=== PATIENT | female | born 1955 | race African-American/Black ===

== ENCOUNTER → 2017-01-03 | Outpatient (CLI) | payer MEDICARE ==
[~2017-01-03] MED LIST: ALPR2TAB2 PO; AMLO5TAB2 PO; ATOR20TA9 PO; CLIN150C14 PO; ESCI20TA10 PO; ESTR0.3T PO; HYDR200T PO; LEVO25TA4 PO; MEVACOR PO; NAPROXEN PO; PRAM0.12 PO; PROP10TA PO; SERT100T5 PO; TRAM50TA2 PO
[2017-01-03 11:48] LABS: HEMATOCRIT 44.2 % (34.6-47.8); HEMOGLOBIN 14.8 g/dL (11.7-16.4)
[2017-01-03 11:58] LABS: BLOOD UREA NITROGEN 8 mg/dL (7-18)
== END | disposition home or self-care (01) ==
LOC: STAR 10:11
PROVIDERS: ATTEND Neurological Surgery
DX: Z01.818 Encounter for other preprocedural examination (principal); M51.36 Other intervertebral disc degeneration, lumbar region; R79.1 Abnormal coagulation profile
CPT/HCPCS: 36415; 71020; 80048; 81001; 85025; 85610; 85730; 87086; 93005

== ENCOUNTER 2018-09-16 07:03 | Outpatient (CLI) | payer MEDICARE | END 2018-09-16 23:59 | disposition home or self-care (01) | LOC: CFH 07:03 | PROVIDERS: ATTEND Family Medicine | DX: K43.9 Ventral hernia without obstruction or gangrene (principal); K57.30 Diverticulosis of large intestine without perforation or abscess without bleeding; K59.00 Constipation, unspecified; J98.11 Atelectasis; K76.0 Fatty (change of) liver, not elsewhere classified; M47.895 Other spondylosis, thoracolumbar region; I70.0 Atherosclerosis of aorta; Z90.710 Acquired absence of both cervix and uterus | CPT/HCPCS: 74177; 82565; Q9967 ==

== ENCOUNTER → 2019-01-08 | Outpatient (CLI) | payer MEDICARE ==
[~2019-01-08] MED LIST changes: +AMLO-150 PO; -AMLO5TAB2 PO; +ATOR20TA37 PO; -ATOR20TA9 PO; +ATOR40TA78 PO; +HYDR-36 PO; -HYDR200T PO; +HYDR200T72 PO; +IBUP-1223 PO; +METH750T87 PO; -PROP10TA PO; +PROP10TA16 PO; +SERT100T32 PO; -SERT100T5 PO
== END | disposition home or self-care (01) ==
LOC: STAR 08:58
PROVIDERS: ATTEND Orthopaedic Surgery
DX: Z01.810 Encounter for preprocedural cardiovascular examination (principal); M75.41 Impingement syndrome of right shoulder; M75.121 Complete rotator cuff tear or rupture of right shoulder, not specified as traumatic; Z88.1 Allergy status to other antibiotic agents; Z88.9 Allergy status to unspecified drugs, medicaments and biological substances; Z88.8 Allergy status to other drugs, medicaments and biological substances
CPT/HCPCS: 93005

== ENCOUNTER 2019-01-13 10:37 | Day surgery (SDC) | payer MEDICARE ==
[~2019-01-13] VITALS: Ht 162.6 cm; Wt 71.7 kg
[2019-01-13] MEDS ORDERED: LACTATED RINGERS 1,000 ML IV SCH (10:49)
[2019-01-13 10:52] VITALS: BP 104/69
[2019-01-13] MEDS ORDERED: LIDOCAINE-MPF 1%, 2ML INFIL ONE (11:00)
[2019-01-13] MEDS ORDERED: SCOPOLAMINE PATCH, 1.5MG PATCH.TD72 TD ONE (11:00)
[2019-01-13] MEDS ORDERED: ACETAMINOPHEN 500 MG TABLET PO ONE (11:00)
[2019-01-13] MEDS ORDERED: GABAPENTIN 300 MG CAPSULE PO ONE (11:00)
[2019-01-13] MEDS ORDERED: FENTANYL PF 250 MCG/5ML ONE (11:06)
[2019-01-13] MEDS ORDERED: MIDAZOLAM 1 MG/ML, 2ML ONE (11:06)
[2019-01-13] MEDS ORDERED: LIDOCAINE/PF 1%-EPI 1:200K, 30 ML ONE (11:33)
[2019-01-13] MEDS ORDERED: SUCCINYLCHOLINE 20 MG/ML, 10ML ONE (11:45)
[2019-01-13] MEDS ORDERED: CEFAZOLIN 1,000 MG ONE (11:45)
[2019-01-13] MEDS ORDERED: DEXAMETHASONE 4 MG/ML, 1ML ONE (11:45)
[2019-01-13] MEDS ORDERED: ROCURONIUM 10 MG/ML,10ML ONE (11:45)
[2019-01-13] MEDS ORDERED: PROPOFOL 10 MG/ML, 20ML ONE (11:45)
[2019-01-13] MEDS ORDERED: ONDANSETRON 2MG/ML, 2ML ONE (11:45)
[2019-01-13] MEDS ORDERED: OXYcodone 5 MG/5 ML ORAL.SOL UDC PO PRN ×2 (12:30→13:30)
[2019-01-13] MEDS ORDERED: LABETALOL 5MG/ML, 20ML IV PRN (12:30)
[2019-01-13] MEDS ORDERED: ALBUTEROL SULFATE 2.5 MG/3 ML NPPB PRN (12:30)
[2019-01-13] MEDS ORDERED: FENTANYL PF 100 MCG/2ML IV PRN (12:30)
[2019-01-13] MEDS ORDERED: MEPERIDINE/PF 25MG/0.5ML IVPush PRN (12:30)
[2019-01-13] MEDS ORDERED: METOCLOPRAMIDE 5 MG/ML, 2ML IV PRN (12:30)
[2019-01-13] MEDS ORDERED: hydrALAzine 20 MG/ML, 1ML IV PRN (12:30)
[2019-01-13] MEDS ORDERED: ONDANSETRON 2MG/ML, 2ML IVPush PRN (12:30)
[2019-01-13] MEDS ORDERED: KETOROLAC 30 MG/1 ML IV PRN (12:30)
[2019-01-13] MEDS ORDERED: PROMETHAZINE 25 MG/ML, 1ML IV PRN (12:30)
[2019-01-13] MEDS ORDERED: HYDROmorphone 1 MG/ML, 1ML INJ IV PRN ×2 (12:30→13:30)
[2019-01-13] MEDS ORDERED: KETOROLAC 30 MG/1 ML ONE (13:33)
== END 2019-01-13 15:55 | disposition home or self-care (01) ==
LOC: OUT 10:37
PROVIDERS: ATTEND Orthopaedic Surgery
DX: S46.011A Strain of muscle(s) and tendon(s) of the rotator cuff of right shoulder, initial encounter (principal); S43.431A Superior glenoid labrum lesion of right shoulder, initial encounter; M75.41 Impingement syndrome of right shoulder; M75.51 Bursitis of right shoulder; M65.811 Other synovitis and tenosynovitis, right shoulder; M06.9 Rheumatoid arthritis, unspecified; M32.9 Systemic lupus erythematosus, unspecified; I10 Essential (primary) hypertension; F17.200 Nicotine dependence, unspecified, uncomplicated; Z79.1 Long term (current) use of non-steroidal anti-inflammatories (NSAID); Z79.891 Long term (current) use of opiate analgesic; Z79.890 Hormone replacement therapy; Z79.899 Other long term (current) drug therapy; Z88.2 Allergy status to sulfonamides; Z88.5 Allergy status to narcotic agent; Z88.0 Allergy status to penicillin; Z88.1 Allergy status to other antibiotic agents; Z88.8 Allergy status to other drugs, medicaments and biological substances; Z90.710 Acquired absence of both cervix and uterus; Z90.49 Acquired absence of other specified parts of digestive tract; Z98.51 Tubal ligation status; Z98.890 Other specified postprocedural states; Z82.3 Family history of stroke; Z82.49 Family history of ischemic heart disease and other diseases of the circulatory system
CPT/HCPCS: 29823; 29826; 29827; 64415; C1713; J0330; J0690; J1100; J1885; J2250; J2405; J2704; J3010; J3490; J7120

== ENCOUNTER 2019-09-24 13:48 | Emergency (ER) | payer MEDICARE ==
[~2019-09-24] VITALS: Ht 162.6 cm; Wt 70.0 kg
[~2019-09-24 13:48] MED LIST changes: +HYDR-3246 PO; -HYDR-36 PO
--- NOTE | 2019-09-24 14:28 | NUR ---
RECEIVED REPORT FROM RYDER RUIZ. PT RESTING ON [facility].
[2019-09-24] MEDS ORDERED: ONDANSETRON 2MG/ML, 2ML IVPush ONE (14:30)
[2019-09-24] MEDS ORDERED: SODIUM CHLORIDE 0.9% 1,000ML IVBOLUS ONE (14:30)
[2019-09-24] MEDS ORDERED: MORPHINE SULFATE 4 MG/ML, 1ML IVPush PRN (14:30)
[2019-09-24] MEDS ORDERED: ONDANSETRON 2MG/ML, 2ML ONE (14:35)
[2019-09-24] MEDS ORDERED: MORPHINE SULFATE 4 MG/ML, 1ML ONE (14:35)
[2019-09-24 14:58] LABS: BASOPHILS # (AUTO) 0.02 x10^3/uL (0-0.1); BASOPHILS % (AUTO) 1 % (0-1); EOSINOPHILS # (AUTO) 0.09 x10^3/uL (0-0.4); EOSINOPHILS % (AUTO) 2 % (1-7); LYMPHOCYTES # (AUTO) 1.51 x10^3/uL (1-3.4); LYMPHOCYTES % (AUTO) 35 % (22-44); MD NO; MEAN CORPUSCULAR HEMOGLOBIN 28.1 pg (27.0-34.8); MEAN CORPUSCULAR HGB CONC 33.1 g/dL (32.4-35.8); MEAN PLATELET VOLUME 7.7 fL (7.4-10.4); MONOCYTES # (AUTO) 0.41 x10^3/uL (0.2-0.8); MONOCYTES % (AUTO) 10 % (2-9); NEUTROPHILS # (AUTO) 2.33 x10^3/uL (1.8-6.8); NEUTROPHILS % (AUTO) 53 % (42-75); PLATELET COUNT 227 x10^3/uL (130-400); RED CELL DISTRIBUTION WIDTH 14.9 % (9.6-15.2)
--- NOTE | 2019-09-24 15:03 | NUR ---
PT TO AND FROM RESTROOM W/O ASSISTANCE. PT RESTING ON GURNEY. NADN. VSS. PT REFUSED BLANKET AT THIS TIME. AWARE OF POC FOR CT W/ CONT AND IS AGREEABLE.
[2019-09-24 15:10] LABS: ALANINE AMINOTRANSFERASE 36 U/L (12-78); ALBUMIN 3.2 g/dL (3.4-5.0); ANION GAP 8 mmol/L (5-15); CALCIUM 8.4 mg/dL (8.5-10.1); CHLORIDE 111 mmol/L (98-107); CREATININE 0.61 mg/dL (0.55-1.02)
[2019-09-24 15:12] LABS: ALKALINE PHOSPHATASE 80 U/L (45-117); BILIRUBIN,TOTAL 0.5 mg/dL (0.2-1.0); TOTAL PROTEIN 6.9 g/dL (6.4-8.2)
[2019-09-24 15:30] LABS: MICROSCOPIC INDICATED
[2019-09-24] MEDS ORDERED: OMNIPAQUE 350 MG/ML, 100ML BOTTLE ONE (16:08)
[2019-09-24 17:08] VITALS: BP 111/74
--- NOTE | 2019-09-24 17:09 | NUR ---
PT RESTING ON GURNEY. NADN. [place].
== END 2019-09-24 17:20 | disposition home or self-care (01) ==
LOC: ED 14:33
DX: R10.32 Left lower quadrant pain (principal); Z87.39 Personal history of other diseases of the musculoskeletal system and connective tissue; I10 Essential (primary) hypertension; Z90.89 Acquired absence of other organs; Z90.710 Acquired absence of both cervix and uterus
CPT/HCPCS: 36415; 74177; 80053; 81001; 85025; 87077; 87086; 87186; 96374; 96375; 99285; J2270; J2405; J7030; Q9967